=== PATIENT | female | born 1935 | race Asian ===

== ENCOUNTER 2019-03-20 23:46 | Emergency (ER) | payer OTHER, MEDICARE ==
[~2019-03-20] VITALS: Ht 144.8 cm; Wt 48.9 kg
--- NOTE | 2019-03-20 23:46 | NUR ---
TRIAGE NOTE: bib remsa for complaint of weakness after showering. per pts pt has hx of a stroke with only s/s of yawning. pts became concerned after pt was weak and yawned. pt complains of weakness at this time however denies further s/s. no lateralizing deficits noted at this time. pt with hx of dementia and per is at baseline.
[2019-03-20] MEDS ORDERED: ESOM20CA PO (23:51)
[2019-03-20] MEDS ORDERED: CLOP75TA52 PO (23:51)
[2019-03-20] MEDS ORDERED: OXYB5TAB7 PO (23:51)
[2019-03-20] MEDS ORDERED: LOSARTAN (23:51)
[2019-03-20] MEDS ORDERED: DONE5TAB7 PO (23:51)
--- NOTE | 2019-03-20 23:51 | NUR ---
MED REC COMPLETED TO BEST OF ABILITIES. PT AND SPOUSE [employer]
[2019-03-21 00:22] LABS: BASOPHILS # (AUTO) 0.02 x10^3/uL (0-0.1); BASOPHILS % (AUTO) 0 % (0-1); EOSINOPHILS # (AUTO) 0.16 x10^3/uL (0-0.4); EOSINOPHILS % (AUTO) 3 % (1-7); LYMPHOCYTES # (AUTO) 1.38 x10^3/uL (1-3.4); LYMPHOCYTES % (AUTO) 24 % (22-44); MD NO; MEAN CORPUSCULAR HEMOGLOBIN 30.7 pg (27.0-34.8); MEAN CORPUSCULAR HGB CONC 32.3 g/dL (32.4-35.8); MEAN CORPUSCULAR VOLUME 95.1 fL (80-100); MEAN PLATELET VOLUME 7.8 fL (7.4-10.4); MONOCYTES # (AUTO) 0.67 x10^3/uL (0.2-0.8); MONOCYTES % (AUTO) 12 % (2-9); NEUTROPHILS % (AUTO) 61 % (42-75); PLATELET COUNT 221 x10^3/uL (130-400); RED BLOOD COUNT 3.29 x10^6/uL (3.82-5.3); RED CELL DISTRIBUTION WIDTH 14.8 % (9.6-15.2)
[2019-03-21 00:31] LABS: ALBUMIN 3.5 g/dL (3.4-5.0); ANION GAP 7 mmol/L (5-15); CALCIUM 8.7 mg/dL (8.5-10.1); CHLORIDE 107 mmol/L (98-107)
[2019-03-21 00:36] LABS: CREATININE 1.61 mg/dL (0.55-1.02); TROPONIN I < 0.015 ng/mL (0.000-0.045)
--- NOTE | 2019-03-21 00:37 | NUR ---
Pt resting on gurney, pt continues to deny complaints. Pt remains NSR on monitors, VSS. at bedside.
[2019-03-21 01:38] VITALS: BP 153/67
--- NOTE | 2019-03-21 01:39 | NUR ---
Patient/Caregiver given discharge instructions and they have confirmed that they understand the instructions. Patient ambulatory with steady gait.
== END 2019-03-21 01:40 | disposition home or self-care (01) ==
LOC: ED 03-21 00:21
DX: R53.1 Weakness (principal); I10 Essential (primary) hypertension; Z86.73 Personal history of transient ischemic attack (TIA), and cerebral infarction without residual deficits
CPT/HCPCS: 36415; 80048; 82040; 84484; 85025; 93005; 99284